=== PATIENT | male | born 1995 | race Caucasian/White ===

== ENCOUNTER 2024-10-26 02:20 | Emergency (ER) | payer MEDICAID, SELFPAY ==
[2024-10-26] VITALS (11 sets, daily range): BP systolic 118–172; BP diastolic 84–123; PULSE 70–87; RESP 15–27; TEMP 36.8–37; O2SAT 96–100; BMI 33.5
--- NOTE | 2024-10-26 02:36 | XR_ITS ---
Examination: Abdomen sonogram, Limited Date and time of exam: October 26, 2024 0351 hours INDICATIONS: Onset right upper abdominal pain beginning 5 hours ago Technique: Real-time hussein scale transabdominal sonographic images of the upper abdomen obtained. Findings: Normal gallbladder Normal common bile duct 0.5 cm Liver 16.8 cm no focal liver lesions Normal hepatopedal portal venous flow Patent IVC IMPRESSION: Normal gallbladder Mild hepatomegaly
--- NOTE | 2024-10-26 02:43 | EDNOTE_ITS ---
ED Abdominal Pain RME/HPI General Chief Complaint: Abdominal Pain Stated complaint: RIGHT UPPER ABD PAIN Time seen by provider: 10/26/24 02:36 Arrival date/time: 10/26/24 02:20 29M with history of anxiety and marijuana presents to ED with 1 day of RUQ/epigastric pain and N/V. Patient denies URI symptoms, dysuria and diarrhea. Limitations: no limitations Related Data Home Medications ?Medication ?Instructions ?Recorded ?Confirmed Citalopram Hydrobromide * (CELEXA 20 mg PO HS #0 tabs //05/15/18 *) aripiprazole 10 mg tablet (Abilify) 10 mg PO HS 05/15/18 Previous Rx's ?Medication ?Instructions ?Recorded acetaminophen 300 mg-codeine 15 mg 1 tab PO Q6H PRN pa in #15 tabs 02/22/21 tablet ibuprofen 800 mg tablet (IBU) 800 mg PO TID PRN pain # 30 tabs 02/22/21 amoxicillin 875 mg-potassium 1 tab PO BID 7 days #14 t abs 10/26/24 clavulanate 125 mg tablet pantoprazole 40 mg tablet,delayed 40 mg PO QDAY #30 ta bs 10/26/24 release Allergies Allergy/AdvReac Type Severity Reaction Status Date / Time No Known Allergies Allergy Verified 10/26/24 02:22 Review of Systems Review of Systems Systems Reviewed: All systems reviewed, normal except as documented Constitutional Constitutional: Reports system reviewed and no additional complaints, except as documented, Denies fever(s) and Denies headache(s) ENT Ears, Nose, Mouth, and Throat: Denies disequilibrium and Denies headache(s) Cardiovascular Cardiovascular: Reports system reviewed and no additional complaints, except as documented, Denies chest pain and Denies dyspnea Respiratory Respiratory: Reports system reviewed and no additional complaints, except as documented, Denies cough and Denies dyspnea Gastrointestinal Gastrointestinal: Reports system reviewed and no additional complaints, except as documented, Reports as per HPI, Reports abdominal pain, Reports nausea and Reports vomiting Neurologic Neurologic: Reports system reviewed and no additional complaints, except as documented, Denies confusion, Denies disequilibrium and Denies headache(s) Psychiatric Psychiatric: Denies confusion Past Medical History Past Medical History CARDIAC: Negative Congestive Heart Failure RESPIRATORY: Negative Chronic Obstructive Pulmonary Disease (COPD) GENITOURINARY: Negative Renal Disease ENDOCRINE: Negative Diabetes Mellitus Type 1 or Diabetes Mellitus Type 2 PSYCHO/SOCIAL: Positive Depression and Anxiety Social History SMOKING STATUS: Current some day smoker SUBSTANCE USE: marijuana ED Exam General Limitations: Present no limitations General appearance: Present alert, in no apparent distress and anxious (mild) Head Head exam: Present atraumatic Eye Eye exam: Present normal appearance, PERRL and EOMI ENT ENT exam: Present normal exam, normal oropharynx and mucous membranes moist Neck Neck exam: Present normal inspection, full ROM and trachea midline Chest Chest inspection: Present normal inspection and symmetric chest wall rise Respiratory Respiratory exam: Present normal lung sounds bilaterally Cardiovascular Cardiovascular exam: Present regular rate, normal rhythm and normal heart sounds Abdominal Exam Abdominal exam: Present soft and normal bowel sounds Abdominal tenderness: Present RUQ and epigastrium Extremities Exam Extremities exam: Present normal inspection and full ROM Back Exam Back exam: Present normal inspection and full ROM Neurological Exam Neurological exam: Present alert, oriented X3 and CN II-XII intact Psychiatric Psychiatric exam: Present normal affect and normal mood Skin Skin exam: Present warm, dry, intact and normal color Course Quality Measures none Orders Category Date Time Status CT Screening NOW Care 10/26/24 04:08 Completed EKG (ED ONLY) *Do not use* NOW Care 10/26/24 04:09 Completed Insert IV NOW Care 10/26/24 04:[address] abdomen pelvis w con Stat Exams 10/26/24 04:08 Completed EKG (ED Only) Stat Exams 10/26/24 04:08 Draft US gall bladder Stat Exams 10/26/24 02:36 Completed XR chest 1V portable Stat Exams 10/26/24 04:08 Completed CBC Stat Lab 10/26/24 02:45 Completed CBC Stat Lab 10/26/24 08:24 Completed CMP [Comprehensive Metabolic Panel] Stat Lab 10/26/24 02:45 Completed Lipase Stat Lab 10/26/24 02:45 Completed UA [Urinalysis] Stat Lab 10/26/24 08:41 Ordered Urinalysis, C/S if Indicated Stat Lab 10/26/24 08:41 Completed HYDROcodone*/APAP 5/325 [[place] 5/325] Med 10/26/24 02:36 Discontinued 1 tab PO X1 ONE Lidocaine 2% Viscous [Xylocaine 2% Viscous] Med 10/26/24 07:44 Discontinued 15 ml PO X1 ONE Morphine Inj Med 10/26/24 04:13 Discontinued 5 mg IVP X1 ONE Ondansetron Inj [Zofran Inj] Med 10/26/24 04:13 Discontinued 4 mg IV X1 ONE Sodium Chloride 0.9% 1000 ml [Ns] 1,000 ml Med 10/26/24 06:31 Discontinued IV 999 mls/hr mg Hyd/Al Hyd/Ambar Susp [Maalox Susp] Med 10/26/24 07:44 Discontinued 30 ml PO X1 ONE Vital Signs Vital signs: Vital Signs Temperature 98.3 F 10/26/24 02:28 Pulse Rate 83 10/26/24 02:28 Respiratory Rate 20 10/26/24 02:28 Blood Pressure 171/108 H 10/26/24 02:28 Pulse Oximetry (%) 99 10/26/24 02:28 Oxygen Delivery Method Room Air 10/26/24 02:28 O2 at 99% on RA and WNLs Abdominal Pain MDM MDM Narrative MDM Narrative:: 29M with history of anxiety and marijuana presents to ED with 1 day of RUQ/epigastric pain and N/V. Patient denies URI symptoms, dysuria and diarrhea. Physical exam reveals RUQ/epigastric tenderness (RUQ>epi). Patient is afebrile, calm, but mildly anxious. US unremarkable. CMP unremarkable. Lipase normal. Moderate leukocytosis. EKG is NSR. Wet CXR read unremarkable pending official report. Care signed out to colleague. CT showed PUD involving duodenum. Patient discharged with PPI and ABX. Patient data External records reviewed:: [facility] previous records Clinical information provided by:: patient Social determinants that could affect healthcare access:: substance use Patient has the following chronic illnesses:: drug/psych How is presenting disease/condition affected by chronic disease/condition?: exacerbated by Evaluation data The following diagnostics were reviewed and interpreted by me:: lab results and radiology exam(s) Lab and/or radiology exams considered but not ordered:: ordered Interpretation Summary: above Medications / Prescriptions Medications or Prescriptions considered but not ordered:: ordered Medication administrations:: Medication Administration History Discontinued Medications Hydrocodone Bitart/Acetaminophen (Hydrocodone/Apap 5/325 Tablet) 1 tab PO X1 ONE Stop: 10/26/24 02:37 Last Admin: 10/26/24 02:52 Dose: 1 tab Documented By: CVL Al Hydrox/Mg Hydrox/Simethicone (Mg Hyd/Al Hyd/Ambar (Maalox Reg) Susp 30 Ml Udc) 30 ml PO X1 ONE Stop: 10/26/24 07:45 Last Admin: 10/26/24 08:36 Dose: 30 ml Documented By: BETINA Sodium Chloride (Ns) 1,000 mls @ 999 mls/hr IV .Q1H1M ONE Stop: 10/26/24 07:31 Last Infusion: 10/26/24 07:49 Dose: Infused Documented By: Admin: 10/26/24 06:48 Dose: 999 mls/hr Documented By: MADDI Lidocaine HCl (Lidocaine Viscous 2% 15 Ml Udc) 15 ml PO X1 ONE Stop: 10/26/24 07:45 Last Admin: 10/26/24 08:36 Dose: 15 ml Documented By: BETINA Morphine Sulfate (Morphine Sulf Inj 10 Mg/Ml Vial) 5 mg IVP X1 ONE Stop: 10/26/24 04:14 Last Admin: 10/26/24 04:35 Dose: 5 mg Documented By: MADDI Ondansetron HCl (Ondansetron Inj 2 Mg/Ml Inj 2 Ml) 4 mg IV X1 ONE; Protocol Stop: 10/26/24 04:14 Last Admin: 10/26/24 04:35 Dose: 4 mg Documented By: MADDI above Consultations Consultation(s) initiated? (list below): No Diagnosis Differential diagnosis abdominal pain: abdominal pain, acute appendicitis, calculus of kidney, constipation, diverticulitis, gastroenteritis, pancreatitis, small bowel obstruction and other (biliary disease, kidney stone, PUD) Most likely diagnosis given after review of the tests above:: PUD and ab pain Admission Indicated Admission indicated?: not indicated Admission Request Was there a request for admission?: No Disposition Plan Disposition Plan: Discharge Discharge Attestation Discharge Attestation: The patient and all family members were given an opportunity to ask questions and understood the discharge instructions. Discharge instructions specifically effects, indications for sooner follow up or return to the emergency department, and the expected course of current diagnosis. Patient condition: Stable Discharge Plan Plan Patient Disposition: HOME (Self Care) Prescriptions/Referrals Prescriptions/Med Rec: New pantoprazole 40 mg tablet,delayed release (DR/EC) 40 mg PO QDAY Qty: 30 0RF amoxicillin-pot clavulanate 875-125 mg tablet 1 tab PO BID 7 Days Qty: 14 0RF No Action Citalopram Hydrobromide * (CELEXA *) 20 MG tablet 20 mg PO HS Qty: 0 ibuprofen [IBU] 800 mg tablet 800 mg PO TID PRN (Reason: pain) Qty: 30 0RF acetaminophen-codeine 300-15 mg tablet 1 tab PO Q6H PRN (Reason: pain) Qty: 15 0RF aripiprazole [Abilify] 10 mg Tablet 10 mg PO HS Patient Comments: patient does not know dose Referrals: Nimo Cortez [employer] [Primary Care Provider] - In 1 week Problem List Clinical Impression: Abdominal pain, Peptic ulcer Patient/Caregiver Discharge Instructions Discharge Activity: activity as tolerated Education Materials: Abdominal Pain, ED PEPTIC ULCER vs GASTRITIS Additional Instructions: Medication sent to pharmacy take as directed. only prescribed a short course to see if it helps symptoms. advised to avoid eating fatty foods, spicy foods, mint, chocolate or large meals, lying down after eating, wearing tight garments or engaging in activities which would increase the pressure in the abdomen. Keeping the head end of the bed elevated may also help alleviate symptoms. Weight reduction may also help. Please make sure you have an H. pylori testing outpatient. Follow-up with your clinic on Tuesday for follow-up care. Return to the emergency department this any worsening symptoms change in condition. Print Language: [place] Stand Alone Forms: [employer] Award Info., Patient Portal Info Letter MARLON/GAYLE Supervising Physician MARLON/GAYLE Supervising Physician: Dr Eason
[2024-10-26] MEDS: HYDROcodone/APAP 5/325 TABLET 1 TAB PO (02:52)
[2024-10-26 02:55] LABS: Basophils # (Auto) 0.1 Thou/mm3 (0.0-0.2); Basophils % (Auto) 0 % (0-2.5); Eosinophils # (Auto) 0.3 Thou/mm3 (0.0-0.5); Eosinophils % (Auto) 2 % (0-10); Hematocrit 45.8 % (41.0-53.0); Hemoglobin 15.8 g/dL (13.5-16.0); Immature Granulocytes % (Auto) 0 % (0-0); Immature Granulocytes Auto 0.07 Thou/mm3 (0.00-0.00); Lymphocytes # (Auto) 3.1 Thou/mm3 (1.0-4.8); Lymphocytes % (Auto) 18 % (10-50); Mean Corpuscular HGB Conc 34.5 g/dl (31.0-37.0); Mean Corpuscular Hemoglobin 28.9 pg (25.0-35.0); Mean Corpuscular Volume 84 fL (80-100); Monocytes # (Auto) 0.8 Thou/mm3 (0.0-0.8); Monocytes % (Auto) 5 % (0-12); Neutrophils # (Auto) 13.2 Thou/mm3 (1.8-7.7); Neutrophils % (Auto) 75 % (37-80); Nucleated Red Blood Cell % 0 /100 WBC (0); Platelet Count 318 Thou/mm3 (140-440); RDW Standard Deviation 38.4 fL (35.1-43.9); Red Blood Count 5.46 Miln/mm3 (4.50-5.90); White Blood Count 17.5 Thou/mm3 (3.8-10.6)
[2024-10-26 03:19] LABS: Alanine Aminotransferase 40 U/L (10-49); Albumin, Serum 4.9 gm/dL (3.5-5.0); Albumin/Globulin Ratio 1.5 (1.2-2.2); Alkaline Phosphatase 75 U/L (46-116); Anion Gap 11 (7-16); Aspartate Amino Transferase 25 U/L (0-34); BUN/Creatinine Ratio 11 Ratio (12-20); Bilirubin,Total 0.6 mg/dL (0.3-1.2); Blood Urea Nitrogen 11 mg/dL (9-23); Calcium 10.1 mg/dL (8.3-10.6); Calcium (Corrected) 10.1 mg/dL (8.5-10.1); Carbon Dioxide 26.1 mMol/L (20.0-31.0); Chloride 102 mMol/L (98-107); Estimated Creatinine Clearance 139.2 mL/min (>60); Globulin 3.2 gm/dL (2.3-3.5); Glucose 136 mg/dL (74-106); Lipase 33 U/L (12-53); Osmolality,Calculated 278 (275-295); Potassium 3.4 mMol/L (3.4-5.1); Sodium 139 mMol/L (136-145); Total Protein 8.1 gm/dL (5.7-8.2); eGFR > 60 See Note
--- NOTE | 2024-10-26 04:08 | XR_ITS ---
Examination: CT abdomen with intravenous contrast CT pelvis with intravenous contrast 2-D coronal reconstructions 2-D sagittal reconstructions Date and time of exam:October 26, 2024 0540 hrs. Indications: Right upper abdominal pain nausea and epigastric pain beginning 6 hours ago. CTDI: vol (mGy) 13 DLP: (mGycm) 856 Technique: Multiple axial sections of the abdomen and pelvis have been obtained. 64 slice high-resolution scanner used. 3 mm axial sections have been obtained, post intravenous injection 60 cc [id number] 2-D sagittal, coronal reconstructions obtained. Low dose protocols were performed. One or more of the following dose reduction techniques were used; automated exposure control, adjustment of the mA and/or KV according to patient size, use of iterative reconstruction technique. Findings: No focal liver lesions or biliary tract dilatation - for gallstones Spleen is not enlarged Edema involving the duodenum axial image 81 No pancreatic or adrenal mass No renal or ureteral calculi, no hydronephrosis Aorta normal size 10 mm fat-containing umbilical hernia Normal appendix No bowel obstruction The entire colon shows mild wall thickening and hyperemia No prostatomegaly No bladder mass Impression: Suspicious for active peptic disease involving the duodenal bulb Mild nonspecific diffuse colitis pattern Normal appendix
--- NOTE | 2024-10-26 04:08 | EKG_ITS ---
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
--- NOTE | 2024-10-26 04:08 | XR_ITS ---
Examination: AP chest single view Technique one AP portable upright chest single view Exam date and time: October 26, 2024 0415 hrs. Indications: Right upper abdominal pain today. Findings: Normal heart size. The lungs are clear. The osseous structures are intact. Impression: No active disease
[2024-10-26] MEDS: MORPHINE SULF INJ 10 MG/ML VIAL 5 MG IVP (04:35)
[2024-10-26] MEDS: ONDANSETRON INJ 2 MG/ML INJ 2 ML 4 MG IV (04:35)
--- NOTE | 2024-10-26 06:12 | PRELIM_ITS ---
Gallbladder ultrasound. October 26, 2024 at 0352 hours Clinical history: Right upper quadrant /epigastric pain. Technique: Grayscale and color flow images of the right upper quadrant are provided. Hepatic and portal veins were also imaged with color flow images. Comparison: None Findings: The liver measures 16.8 cm in length and is normal in echogenicity. No evidence of mass or cyst. No evidence of ascites. No intrahepatic biliary ductal dilatation. The main portal vein is patent and demonstrates hepatopetal flow. No gallbladder calculus, wall thickening or pericholecystic fluid is demonstrated. The common bile duct is normal in caliber at 6 mm. The pancreas is obscured by bowel gas and is not evaluated on this examination. The inferior vena cava to the extent visualized is within normal limits. Impression: No sonographic evidence of cholelithiasis, acute cholecystitis or biliary obstruction. Report Electronically Signed By: Jaime Simpson 10/26/2024 6:11:43 AM [EST]
[2024-10-26] MEDS: SODIUM CHLORIDE 0.9% 1000 ML 1,000 ML 999 ML IV (06:48)
--- NOTE | 2024-10-26 07:24 | PC.NURSE ---
Pt resting w/eyes closed upon assumption of care. pt woke up for assessment, denies any pain currently states medication has helped a lot. fluids continue to infuse at this time, pt reminded a urine is needed, reports he is unable to provide one at this time, but will try after fluids are done infusing. Visitor at bedside attentive to pt. call evans remains in reach, will continue to follow POC.
--- NOTE | 2024-10-26 07:41 | PD.EDADDENDU ---
Emergency Room Addendum Addendum Narrative: This case was signed out by other colleague due to his shift ending. Patient presented today for complaints of right upper quadrant abdominal pain with mild nausea no fever. During his ED course he had labs gallbladder ultrasound and CT abdomen. He did receive pain medication IV fluids antiemetics. Upon my assessment patient reports he feels improved. Reviewed labs mild leukocytosis. CMP reassuring. Gallbladder ultrasound negative for cholelithiasis. CT abdomen negative for acute appendicitis, mild peptic ulcer disease depicted. I did go ahead and order a urinalysis- Will repeat CBC I will give him a GI cocktail start him on pantoprazole most likely please Dc home. Patient does report he does not have routine checkups with his PCP advised to schedule an appointment with PCP for follow-up. Most likely H. pylori testing outpatient. Advised to return to the emergency department with any worsening symptoms change in condition. imaging reviewed: Examination: AP chest single view Technique one AP portable upright chest single view Exam date and time: October 26, 2024 0415 hrs. Indications: Right upper abdominal pain today. Findings: Normal heart size. The lungs are clear. The osseous structures are intact. Impression: No active disease Examination: CT abdomen with intravenous contrast CT pelvis with intravenous contrast 2-D coronal reconstructions 2-D sagittal reconstructions Date and time of exam:October 26, 2024 0540 hrs. Indications: Right upper abdominal pain nausea and epigastric pain beginning 6 hours ago. CTDI: vol (mGy) 13 DLP: (mGycm) 856 Technique: Multiple axial sections of the abdomen and pelvis have been obtained. 64 slice high-resolution scanner used. 3 mm axial sections have been obtained, post intravenous injection 60 cc [id number] 2-D sagittal, coronal reconstructions obtained. Low dose protocols were performed. One or more of the following dose reduction techniques were used; automated exposure control, adjustment of the mA and/or KV according to patient size, use of iterative reconstruction technique. Findings: No focal liver lesions or biliary tract dilatation - for gallstones Spleen is not enlarged Edema involving the duodenum axial image 81 No pancreatic or adrenal mass No renal or ureteral calculi, no hydronephrosis Aorta normal size 10 mm fat-containing umbilical hernia Normal appendix No bowel obstruction The entire colon shows mild wall thickening and hyperemia No prostatomegaly No bladder mass Impression: Suspicious for active peptic disease involving the duodenal bulb Mild nonspecific diffuse colitis pattern Normal appendix
[2024-10-26 08:33] LABS: Basophils % (Auto) 0 % (0-2.5); Eosinophils % (Auto) 0 % (0-10); Hematocrit 44.6 % (41.0-53.0); Immature Granulocytes % (Auto) 0 % (0-0); Immature Granulocytes Auto 0.04 Thou/mm3 (0.00-0.00); Lymphocytes # (Auto) 1.7 Thou/mm3 (1.0-4.8); Lymphocytes % (Auto) 13 % (10-50); Mean Corpuscular HGB Conc 33.6 g/dl (31.0-37.0); Mean Corpuscular Hemoglobin 28.7 pg (25.0-35.0); Mean Corpuscular Volume 85 fL (80-100); Monocytes # (Auto) 0.7 Thou/mm3 (0.0-0.8); Monocytes % (Auto) 6 % (0-12); Neutrophils # (Auto) 10.2 Thou/mm3 (1.8-7.7); Neutrophils % (Auto) 81 % (37-80); Nucleated Red Blood Cell % 0 /100 WBC (0); Platelet Count 273 Thou/mm3 (140-440); RDW Standard Deviation 39.4 fL (35.1-43.9); Red Blood Count 5.22 Miln/mm3 (4.50-5.90); White Blood Count 12.7 Thou/mm3 (3.8-10.6)
[2024-10-26] MEDS: MG HYD/AL HYD/SIME (Maalox Reg) SUSP 30 ML UDC PO (08:36)
[2024-10-26] MEDS: LIDOCAINE VISCOUS 2% 15 ML UDC PO (08:36)
[2024-10-26 08:55] LABS: Collection Type, Urine Clean Catch; WBC,Urine 0 /hpf (0-5)
[2024-10-26 09:08] LABS: Amorphous Crystals,Urine Present (Absent); Bilirubin,Urine Negative (Negative); Blood,Urine Negative (Negative); Clarity,Urine Clear (Clear/Hazy); Color,Urine Lt-Yellow (Lt Yel-Yel); Culture Indicated,Urine Not Indicated; Glucose, Urine Negative (Negative); Ketones,Urine 2+ (Negative); Leukocyte Esterase,Urine Negative (Negative); Nitrite,Urine Negative (Negative); Protein,Urine Negative (Neg - Trace); RBC,Urine 8 /hpf (0-3); Squamous Epithelial Cell,Urine < 1 /hpf (0-5); Urobilinogen,Urine Negative mg/dL (0.0-1.0)
[2024-10-26 09:25] LABS: Specific Gravity,Urine 1.015 (1.001-1.035)
== END 2024-10-26 11:08 | disposition home or self-care (01) ==
PROVIDERS: Nurse Practitioner Primary Care; Physician Assistant; Emergency Provider Emergency Medicine; PCP Nurse Practitioner Family
DX: K27.9 Peptic ulcer, site unspecified, unspecified as acute or chronic, without hemorrhage or perforation (principal)
CPT/HCPCS: 36415; 71045; 74177; 76705; 80053; 81001; 83690; 85025; 87400; 93005; 96361; 96374; 99285; A4649; J2270; J2405; J3490; J7030; Q9967; A9270

== ENCOUNTER 2024-10-28 12:57 | Emergency (ER) | payer MEDICAID, SELFPAY ==
--- NOTE | 2024-10-28 13:02 | EKG_ITS ---
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
--- NOTE | 2024-10-28 13:02 | XR_ITS ---
Examination: Abdomen sonogram, Limited Date and time of exam: October 28, 2024 1345 hrs. Indications: Onset right upper abdominal pain beginning 6 months ago Technique: Real-time hussein scale transabdominal sonographic images of the upper abdomen obtained. Findings: 18 mm gallstone Gallbladder wall is abnormally thickened 0.6 cm Common bile duct 0.5 cm no stones Pancreatic head 2.4 cm Liver 16 cm fatty infiltration no focal liver lesions Normal hepatopedal portal venous flow Patent IVC Impression: Calculus cholecystitis, consider HIDA scan follow-up to confirm cystic duct obstruction
--- NOTE | 2024-10-28 13:03 | EDNOTE_ITS ---
ED General RME/HPI General Chief complaint: Abdominal Pain Stated complaint: ABD PAIN Time Seen by Provider: 10/28/24 13:02 Arrival date/time: 10/28/24 12:57 CC: Right upper quadrant abdominal pain HPI patient presents the ER via EMS from his clinic, where the patient was pale diaphoretic. Patient was given 100 mcg of fentanyl for the pain and route. EMS reports tachycardia with a stable blood pressure. Patient is awake alert oriented states he was here 2 days ago on October 26 for same complaint right upper quadrant pain had a workup including ultrasound and scan which were negative . Patient denies diarrhea and is eating soft bland foods. No other complaints patient is pale and diaphoretic upon assessment. Localized pain is 8 to a 9 on a 10 scale. Related Data Home Medications ?Medication ?Instructions ?Recorded ?Confirmed Citalopram Hydrobromide * (CELEXA 20 mg PO HS #0 tabs 11/07/15 05/15/18 *) aripiprazole 10 mg tablet (Abilify) 10 mg PO HS 05/15/18 Previous Rx's ?Medication ?Instructions ?Recorded acetaminophen 300 mg-codeine 15 mg 1 tab PO Q6H PRN pa in #15 tabs 02/22/21 tablet ibuprofen 800 mg tablet (IBU) 800 mg PO TID PRN pain # 30 tabs 02/22/21 amoxicillin 875 mg-potassium 1 tab PO BID 7 days #14 t abs 10/26/24 clavulanate 125 mg tablet pantoprazole 40 mg tablet,delayed 40 mg PO QDAY #30 ta bs 10/26/24 release meloxicam 7.5 mg tablet 7.5 mg PO QDAY #10 tabs 10/07 11/27 ondansetron 4 mg disintegrating 4 mg PO Q8H #10 tabs 0 10/28/24 tablet Allergies Allergy/AdvReac Type Severity Reaction Status Date / Time No Known Allergies Allergy Verified 10/26/24 02:22 Review of Systems Review of Systems Narrative Review of Systems: GEN: No fever, no chills, no weight loss EYES: No discharge, no visual changes, no pain HEENT: No ear pain, no congestion, no sore throat PULM: No shortness of breath, no cough, no congestion CV: No chest pain, no dyspnea on exertion, no palpitations GI: No nausea, no vomiting, no diarrhea, + pain, no constipation : No frequency, no urgency, no dysuria MUSC/SKEL: No joint pain, no back pain SKIN: No rash PSYCH: No hallucinations, no depression HEME/LYMPH: No easy bleeding or bruising tendencies NEURO: No weakness, no headache Past Medical History Past Medical History CARDIAC: Negative Cardiac Disorders or Congestive Heart Failure RESPIRATORY: Negative Chronic Obstructive Pulmonary Disease (COPD) or Asthma GENITOURINARY: Negative Renal Disease ENDOCRINE: Negative Diabetes Mellitus Type 1 or Diabetes Mellitus Type 2 HEMATOLOGIC: Negative Sickle Cell Disease PSYCHO/SOCIAL: Positive Depression and Anxiety Social History SMOKING STATUS: Current some day smoker SUBSTANCE USE: marijuana ED Exam Narrative Physical exam: [General: Obese, pale, diaphoretic, in moderate discomfort but not in any acute distress Head normocephalic HEENT: Within acceptable limits Neck is supple nontender Chest equal chest rise nontender to palpation Respiratory: Clear to auscultation no wheezes crackles or rubs CV: Rate rhythm is regular no murmurs rubs or clicks Abdomen right upper quadrant tenderness with palpation reflexive guarding no rebound tenderness no epigastric left upper quadrant or lower quadrant abdominal pain. Back: No CVA tenderness no spinous process tenderness from cervical spine thoracic and lumbar spine Skin: Intact no petechiae rash induration ulceration or crepitus Extremities: Moving all extremity against resistance cap refill less than 2 seconds neurosensory intact Neuro: Awake alert oriented x3 Glascow coma 15 no focal deficits] Course Quality Measures none Orders Category Date Time Status EKG (ED ONLY) *Do not use* NOW Care 10/28/24 13:02 Completed EKG (ED Only) Stat Exams 10/28/24 13:02 Draft US gall bladder Stat Exams 10/28/24 13:02 Completed B-Type Natriuretic Peptide Stat Lab 10/28/24 13:43 Completed CBC Stat Lab 10/28/24 13:43 Completed Comprehensive Metabolic Panel Stat Lab 10/28/24 13:43 Completed Drug Screen,Urine Stat Lab 10/28/24 13:02 Ordered Lipase Stat Lab 10/28/24 13:43 Completed Magnesium Stat Lab 10/28/24 13:43 Completed Partial Thromboplastin Time Stat Lab 10/28/24 13:43 Completed Prothrombin Time with INR Stat Lab 10/28/24 13:43 Completed Urinalysis Stat Lab 10/28/24 13:02 Ordered Vital Signs Vital signs: Vital Signs Temperature 98.0 F 10/28/24 13:45 Pulse Rate 88 10/28/24 13:45 Respiratory Rate 14 10/28/24 13:45 Blood Pressure 150/100 H 10/28/24 13:45 Pulse Oximetry (%) 97 10/28/24 13:45 Oxygen Delivery Method Room Air 10/28/24 13:45 MDM Patient data External records reviewed:: [facility] previous records and EMS form Clinical information provided by:: patient and EMS Social determinants that could affect healthcare access:: none Patient has the following chronic illnesses:: Obesity How is presenting disease/condition affected by chronic disease/condition?: u neffected by Evaluation data The following diagnostics were reviewed and interpreted by me:: lab results, radiology exam(s) and EKG tracing(s) Lab and/or radiology exams considered but not ordered:: EKG performed at 1520 shows a ventricular rate of 90 [place] interval 146 QRS of 91 QTc of 391 the sinus rhythm left axis deviation CBC shows no acute leukocytosis anemia thrombocytopenia CMP shows no acute electrolyte imbalances renal impairment transaminitis or T. bili elevation Lipase is normal Ultrasound of the gallbladder shows cholelithiasis without cholecystitis and a mild thickened gallbladder wall. Ultrasound is interpreted by radiologist recommends a HIDA scan. Interpretation Summary: At this time I feel the patient is comfortable up to be discharged home to follow-up in the morning for HIDA scan. Patient is nontoxic-appearing with no active nausea or vomiting resting comfortably with stable vital signs. Medications Medications considered but not ordered:: None none Medication administrations:: None Consultations Consultation(s) initiated? (list below): No Diagnosis Differential Diagnosis ED Complaint MDM: Cholecystitis, cholelithiasis, choledocholithiasis Most likely diagnosis given after review of the tests above:: Cholelithiasis Admission Indicated Admission indicated?: not indicated Explain why admission is indicated or not indicated:: Stable for return tomorrow Admission Request Was there a request for admission?: No Disposition Plan Disposition Plan: Discharge Discharge Attestation Discharge Attestation: The patient and all family members were given an opportunity to ask questions and understood the discharge instructions. Discharge instructions specifically effects, indications for sooner follow up or return to the emergency department, and the expected course of current diagnosis. Patient condition: Stable Medical Decision Making Differential Diagnosis Differential Diagnosis: Cholecystitis, cholelithiasis, choledocholithiasis Lab Data 02/23/25 13:43 10/28/24 13:43 Labs: Lab Results 10/28/24 Range/Units 13:43 WBC 11.7 H (3.8-10.6) Thou/mm3 RBC 5.66 (4.50-5.90) Miln/mm3 Hgb 16.4 H (13.5-16.0) g/dL Hct 47.1 (41.0-53.0) % MCV 83 (80-100) fL MCH 29.0 (25.0-35.0) pg MCHC 34.8 (31.0-37.0) g/dl RDW Std Deviation 38.2 (35.1-43.9) fL Plt Count 281 (140-440) Thou/mm3 Neut % (Auto) 66 (37-80) % Lymph % (Auto) 23 (10-50) % Grady % (Auto) 10 (0-12) % Eos % (Auto) 1 (0-10) % Baso % (Auto) 1 (0-2.5) % Neut # (Auto) 7.6 (1.8-7.7) Thou/mm3 Lymph # (Auto) 2.7 (1.0-4.8) Thou/mm3 Grady # (Auto) 1.2 H (0.0-0.8) Thou/mm3 Eos # (Auto) 0.1 (0.0-0.5) Thou/mm3 Baso # (Auto) 0.1 (0.0-0.2) Thou/mm3 Immature Gran # (Auto) 0.04 H (0.00-0.00) Thou/mm3 Absolute Nucleated RBC 0.00 (0.00-0.00) Thou/mm3 Immature Gran % 0 (0-0) % Nucleated RBC % 0 (0) /100 WBC PT 12.6 H (9.0-12.2) Seconds INR 1.2 (0.9-1.3) APTT 28.5 (22.0-36.0) Seconds Sodium 136 (136-145) mMol/L Potassium 3.8 (3.4-5.1) mMol/L Chloride 102 (98-107) mMol/L Carbon Dioxide 20.7 (20.0-31.0) mMol/L Anion Gap 13 (7-16) BUN 11 (9-23) mg/dL Creatinine 0.8 (0.6-1.3) mg/dL Estim Creat Clear Calc 165.1 (>60) mL/min eGFR > 60 (60 - ) See Note BUN/Creatinine Ratio 14 (12-20) Ratio Glucose 89 (74-106) mg/dL Calculated Osmolality 270 L (275-295) Calcium 10.0 (8.3-10.6) mg/dL Corrected Calcium 10.0 (8.5-10.1) mg/dL Magnesium 2.1 (1.6-2.6) mg/dL Total Bilirubin 0.9 (0.3-1.2) mg/dL AST 19 (0-34) U/L ALT 24 (10-49) U/L Alkaline Phosphatase 65 (46-116) U/L B-Natriuretic Peptide < 20 (0-100) pg/mL Total Protein 8.3 H (5.7-8.2) gm/dL Albumin 5.0 (3.5-5.0) gm/dL Globulin 3.3 (2.3-3.5) gm/dL Albumin/Globulin Ratio 1.5 (1.2-2.2) Lipase 30 (12-53) U/L Discharge Plan Plan Patient Disposition: HOME (Self Care) Patient condition on transfer: Stable Prescriptions/Referrals Prescriptions/Med Rec: New ondansetron 4 mg tablet,disintegrating 4 mg PO Q8H Qty: 10 0RF meloxicam 7.5 mg tablet 7.5 mg PO QDAY Qty: 10 0RF No Action Citalopram Hydrobromide * (CELEXA *) 20 MG tablet 20 mg PO HS Qty: 0 ibuprofen [IBU] 800 mg tablet 800 mg PO TID PRN (Reason: pain) Qty: 30 0RF acetaminophen-codeine 300-15 mg tablet 1 tab PO Q6H PRN (Reason: pain) Qty: 15 0RF aripiprazole [Abilify] 10 mg Tablet 10 mg PO HS Patient Comments: patient does not know dose pantoprazole 40 mg tablet,delayed release (DR/EC) 40 mg PO QDAY Qty: 30 0RF amoxicillin-pot clavulanate 875-125 mg tablet 1 tab PO BID 7 Days Qty: 14 0RF Referrals: Carlos Patterson MD [Physician] - In 1 week No Primary/Family,Physician [Primary Care Provider] - In 1 week Problem List Clinical Impression: Abdominal pain, right upper quadrant, Cholelithiasis Patient/Caregiver Discharge Instructions Education Materials: Abdominal Pain, Treating Gallstones Additional Instructions: Return in the morning at 830 for HIDA scan please if there is worsening of symptoms in spite of medications given return sooner. Print Language: Montserratian Stand Alone Forms: [employer] Award Info., Patient Portal Info Letter PA/BOX STORAGE WORKER Supervising Physician PA/BOX STORAGE WORKER Supervising Physician: Tu Kessler ENP
[2024-10-28 13:45] VITALS: BP 150/100; PULSE 88; RESP 14; TEMP 36.7; O2SAT 97
[2024-10-28 13:50] VITALS: PULSE 94
[2024-10-28 13:55] VITALS: BMI 34.0
[2024-10-28 14:03] LABS: Basophils # (Auto) 0.1 Thou/mm3 (0.0-0.2); Basophils % (Auto) 1 % (0-2.5); Eosinophils # (Auto) 0.1 Thou/mm3 (0.0-0.5); Eosinophils % (Auto) 1 % (0-10); Hematocrit 47.1 % (41.0-53.0); Hemoglobin 16.4 g/dL (13.5-16.0); Immature Granulocytes % (Auto) 0 % (0-0); Immature Granulocytes Auto 0.04 Thou/mm3 (0.00-0.00); Lymphocytes # (Auto) 2.7 Thou/mm3 (1.0-4.8); Lymphocytes % (Auto) 23 % (10-50); Mean Corpuscular HGB Conc 34.8 g/dl (31.0-37.0); Mean Corpuscular Volume 83 fL (80-100); Monocytes # (Auto) 1.2 Thou/mm3 (0.0-0.8); Monocytes % (Auto) 10 % (0-12); Neutrophils # (Auto) 7.6 Thou/mm3 (1.8-7.7); Neutrophils % (Auto) 66 % (37-80); Nucleated Red Blood Cell % 0 /100 WBC (0); Platelet Count 281 Thou/mm3 (140-440); RDW Standard Deviation 38.2 fL (35.1-43.9); Red Blood Count 5.66 Miln/mm3 (4.50-5.90); White Blood Count 11.7 Thou/mm3 (3.8-10.6)
[2024-10-28 14:22] LABS: B-Type Natriuretic Peptide < 20 pg/mL (0-100)
[2024-10-28 14:23] LABS: Alanine Aminotransferase 24 U/L (10-49); Albumin/Globulin Ratio 1.5 (1.2-2.2); Alkaline Phosphatase 65 U/L (46-116); Anion Gap 13 (7-16); Aspartate Amino Transferase 19 U/L (0-34); BUN/Creatinine Ratio 14 Ratio (12-20); Bilirubin,Total 0.9 mg/dL (0.3-1.2); Blood Urea Nitrogen 11 mg/dL (9-23); Carbon Dioxide 20.7 mMol/L (20.0-31.0); Chloride 102 mMol/L (98-107); Creatinine (Component) 0.8 mg/dL (0.6-1.3); Estimated Creatinine Clearance 165.1 mL/min (>60); Globulin 3.3 gm/dL (2.3-3.5); Glucose 89 mg/dL (74-106); INR 1.2 (0.9-1.3); Lipase 30 U/L (12-53); Magnesium 2.1 mg/dL (1.6-2.6); Osmolality,Calculated 270 (275-295); Partial Thromboplastin Time 28.5 Seconds (22.0-36.0); Potassium 3.8 mMol/L (3.4-5.1); Prothrombin Time 12.6 Seconds (9.0-12.2); Sodium 136 mMol/L (136-145); Total Protein 8.3 gm/dL (5.7-8.2); eGFR > 60 See Note
[2024-10-28 16:02] VITALS: BP 135/88; PULSE 91; RESP 16; TEMP 37; O2SAT 97
== END 2024-10-28 16:26 | disposition home or self-care (01) ==
PROVIDERS: Registered Nurse General Practice; Emergency Provider Emergency Medicine
DX: K80.20 Calculus of gallbladder without cholecystitis without obstruction (principal); R94.31 Abnormal electrocardiogram [ECG] [EKG]
CPT/HCPCS: 36415; 76705; 80053; 80307; 81001; 83690; 83735; 83880; 85025; 85610; 85730; 93005; 99284

== ENCOUNTER 2024-10-29 08:54 | Day surgery (SDC) | payer MEDICAID, SELFPAY ==
[2024-10-29] VITALS (12 sets, daily range): BP systolic 132–178; BP diastolic 92–124; PULSE 78–110; RESP 14–22; TEMP 36.3–37.3; O2SAT 95–99; BMI 32.5
--- NOTE | 2024-10-29 10:06 | PD.EDABDPN ---
ED Abdominal Pain RME/HPI General Chief Complaint: Abdominal Pain Stated complaint: RETURNING FOR HIDA SCAN Time seen by provider: 10/29/24 09:30 Arrival date/time: 10/29/24 08:54 29-year-old male presents to the emergency department complains of right upper abdominal pain patient reports symptoms over the last couple of days patient reports previous episodes similar in the past. Patient was evaluated yesterday instructed to return today for HIDA scan Limitations: no limitations Related Data Home Medications ?Medication ?Instructions ?Recorded ?Confirmed Citalopram Hydrobromide * (CELEXA 20 mg PO HS #0 tabs 11/06/05/15/18 *) aripiprazole 10 mg tablet (Abilify) 10 mg PO HS 05/15/18 05/15/18 Previous Rx's ?Medication ?Instructions ?Recorded acetaminophen 300 mg-codeine 15 mg 1 tab PO Q6H PRN pain #15 tabs 02/22/21 tablet ibuprofen 800 mg tablet (IBU) 800 mg PO TID PRN pain #30 tabs 02/22/21 amoxicillin 875 mg-potassium 1 tab PO BID 7 days #14 tabs 10/26/24 clavulanate 125 mg tablet pantoprazole 40 mg tablet,delayed 40 mg PO QDAY #30 tabs 10/26/24 release meloxicam 7.5 mg tablet 7.5 mg PO QDAY #10 tabs 10/28/24 ondansetron 4 mg disintegrating 4 mg PO Q8H #10 tabs 10/28/24 tablet Allergies Allergy/AdvReac Type Severity Reaction Status Date / Time No Known Allergies Allergy Verified 10/26/24 02:22 Review of Systems Review of Systems Systems Reviewed: All systems reviewed, normal except as documented Constitutional Constitutional: Reports system reviewed and no additional complaints, except as documented, Denies fever(s) and Denies headache(s) Eyes Eyes: Reports system reviewed and no additional complaints, except as documented and Denies blurry vision ENT Ears, Nose, Mouth, and Throat: Reports system reviewed and no additional complaints, except as documented, Denies headache(s), Denies nasal congestion and Denies nasal discharge Cardiovascular Cardiovascular: Reports system reviewed and no additional complaints, except as documented, Denies chest pain and Denies dyspnea Respiratory Respiratory: Reports system reviewed and no additional complaints, except as documented, Denies chest congestion, Denies cough and Denies dyspnea Gastrointestinal Gastrointestinal: Reports system reviewed and no additional complaints, except as documented and Reports abdominal pain Integumentary/Breasts Skin/Breast: Reports system reviewed and no additional complaints, except as documented and Denies rash Neurologic Neurologic: Reports system reviewed and no additional complaints, except as documented, Reports as per HPI and Denies headache(s) Past Medical History Past Medical History CARDIAC: Negative Cardiac Disorders or Congestive Heart Failure RESPIRATORY: Negative Chronic Obstructive Pulmonary Disease (COPD) or Asthma GENITOURINARY: Negative Renal Disease ENDOCRINE: Negative Diabetes Mellitus Type 1 or Diabetes Mellitus Type 2 HEMATOLOGIC: Negative Sickle Cell Disease PSYCHO/SOCIAL: Positive Depression and Anxiety Social History SMOKING STATUS: Never smoker SUBSTANCE USE: marijuana ED Exam General Limitations: Present no limitations General appearance: Present alert and in no apparent distress Head Head exam: Present atraumatic Eye Eye exam: Present normal appearance, PERRL and EOMI ENT ENT exam: Present normal exam, normal oropharynx and mucous membranes moist Neck Neck exam: Present normal inspection, full ROM and trachea midline Chest Chest inspection: Present normal inspection and symmetric chest wall rise Respiratory Respiratory exam: Present normal lung sounds bilaterally Cardiovascular Cardiovascular exam: Present regular rate, normal rhythm and normal heart sounds Abdominal Exam Abdominal exam: Present soft, tenderness, guarding, normal bowel sounds and Rolle's sign; Absent distention, rebound, rigidity or tenderness at McBurney's Point Abdominal tenderness: Present RUQ; Absent RLQ Extremities Exam Extremities exam: Present normal inspection and full ROM Back Exam Back exam: Present normal inspection and full ROM Neurological Exam Neurological exam: Present alert, oriented X3 and CN II-XII intact Psychiatric Psychiatric exam: Present normal affect and normal mood Skin Skin exam: Present warm, dry, intact and normal color Course Quality Measures none Orders Category Date Time Status COVID-19 Screening Questionnaire NOW Care 10/29/24 10:08 Active Decision to Admit X1 Care 10/29/24 10:07 Completed Insert IV NOW Care 10/29/24 10:08 Active Consult to General Surgery Stat Cons 10/29/24 10:08 Ordered Morphine Inj Med 10/29/24 10:06 Discontinued 4 mg IVP X1 ONE Ondansetron Inj [Zofran Inj] Med 10/29/24 10:06 Discontinued 4 mg IV X1 ONE Sodium Chloride 0.9% 1000 ml [Ns] 1,000 ml Med 10/29/24 10:06 Discontinued IV 250 mls/hr Vital Signs Vital signs: Vital Signs Temperature 99.1 F 10/29/24 09:53 Pulse Rate 110 H 10/29/24 09:53 Respiratory Rate 22 H 10/29/24 09:53 Blood Pressure 146/92 H 10/29/24 09:53 Pulse Oximetry (%) 98 10/29/24 09:53 Oxygen Delivery Method Room Air 10/29/24 09:53 O2 saturation 98% room air within normal limits Abdominal Pain MDM MDM Narrative MDM Narrative:: 29-year-old male presents to the emergency department complains of right upper abdominal pain patient reports symptoms over the last couple of days patient reports previous episodes similar in the past. Patient was evaluated yesterday instructed to return today for HIDA scan On exam patient does have pain in the right upper quadrant tenderness on palpation I viewed the patient's lab work and ultrasound yesterday Ultrasound consistent with cholecystitis as a patient liver enzymes were elevated I do not believe patient needs HIDA scan Consultation: I spoke with Dr. Parnell who states she will admit the patient for surgery At time of admission patient no distress Patient data External records reviewed:: [facility] previous records Clinical information provided by:: patient Social determinants that could affect healthcare access:: none Patient has the following chronic illnesses:: None How is presenting disease/condition affected by chronic disease/condition?: no chronic disease Evaluation data The following diagnostics were reviewed and interpreted by me:: lab results and radiology exam(s) Lab and/or radiology exams considered but not ordered:: Labs radiology obtain Interpretation Summary: Reviewed by me Medications / Prescriptions Medications or Prescriptions considered but not ordered:: Given Medication administrations:: Medication Administration History Acetaminophen (Acetaminophen 325 Mg Tablet) 650 mg PO Q6H PRN PRN Reason: PAIN SCALE 1-3 (mild Stop: 11/28/24 12:01 Sodium Chloride (Ns) 1,000 mls @ 125 mls/hr IV .Q8H SARAH Stop: 11/28/24 12:14 Last Admin: 10/29/24 12:17 Dose: 125 mls/hr Documented By: YESSY Piperacillin Sod/Tazobactam (Sod 3.375 gm/ Sodium Chloride) 50 mls @ 100 mls/hr IV Q8HR [facility]; Protocol Stop: 11/05/24 13:12 Ketorolac Tromethamine (Ketorolac Inj 30 Mg/Ml Vial) 15 mg IVP Q6H PRN PRN Reason: PAIN SCALE 4-6 (Moderate Stop: 11/03/24 12:01 Morphine Sulfate (Morphine Sulf Inj 10 Mg/Ml Vial) 4 mg IVP Q4H PRN PRN Reason: PAIN SCALE 7-10 (Severe Last Admin: 10/29/24 15:04 Dose: 4 mg Documented By: MP Discontinued Medications Sodium Chloride (Ns) 1,000 mls @ 250 mls/hr IV .Q4H STA Stop: 10/29/24 14:05 Last Infusion: 10/29/24 12:12 Dose: 250 mls/hr Documented By: Admin: 10/29/24 10:31 Dose: 250 mls/hr Documented By: DONN Piperacillin Sod/Tazobactam (Sod 3.375 gm/ Sodium Chloride) 50 mls @ 100 mls/hr IV X1 ONE Stop: 10/29/24 13:44 Last Admin: 10/29/24 15:05 Dose: 100 mls/hr Documented By: YESSY Morphine Sulfate (Morphine Sulf Inj 10 Mg/Ml Vial) 4 mg IVP X1 ONE Stop: 10/29/24 10:07 Last Admin: 10/29/24 10:32 Dose: 4 mg Documented By: DONN Ondansetron HCl (Ondansetron Inj 2 Mg/Ml Inj 2 Ml) 4 mg IV X1 ONE; Protocol Stop: 10/29/24 10:07 Last Admin: 10/29/24 10:31 Dose: 4 mg Documented By: DONN Given Consultations Consultation(s) initiated? (list below): Yes Consultation #1 (Physician, Specialty, Details): dr parnell Diagnosis Differential diagnosis abdominal pain: abdominal pain, acute appendicitis, pancreatitis and small bowel obstruction Most likely diagnosis given after review of the tests above:: Abdominal pain Admission Indicated Admission indicated?: indicated Admission Request Was there a request for admission?: Yes Admission Attestation Admission request attestation: Discussed case with Dr. Parnell surgeon Disposition Plan Disposition Plan: Admit Discharge Plan Plan Patient Disposition: Admit Acute Care w/in Hospital Disposition Comment: Stable Problem List Clinical Impression: Acute cholecystitis MARLON/AGYLE Supervising Physician CHIP Supervising Physician: Dr. Gutierrez
[2024-10-29] MEDS: SODIUM CHLORIDE 0.9% 1000 ML 1,000 ML 250 ML IV (10:31)
[2024-10-29] MEDS: ONDANSETRON INJ 2 MG/ML INJ 2 ML 4 MG IV (10:31)
[2024-10-29] MEDS: MORPHINE SULF INJ 10 MG/ML VIAL 4 MG IVP ×2 (10:32→15:04)
[2024-10-29] MEDS: SODIUM CHLORIDE 0.9% 1000 ML 1,000 ML 125 ML IV (12:17)
--- NOTE | 2024-10-29 13:10 | PD.SURHP ---
HPI HPI 29M presenting with abdominal pain. Patient reports pain began a few days ago after eating a burger, in the right upper quadrant at times very severe and associated with mild nausea. Patient states he had similar pain a couple years ago. He denies any fever or diarrhea, workup consistent with acute cholecystitis PMH: None PSH: None Meds: Recently prescribed Augmentin and Protonix for concern for peptic ulcer Allergies: NKDA social history: Non-smoker Review of Systems Review of Systems ROS Unobtainable: All systems reviewed & no additional complaints except as documented Meds Home Medications and Allergies Home Medications ?Medication ?Instructions ?Recorded ?Confirmed ?Type Citalopram Hydrobromide * (CELEXA 20 mg PO HS #0 tabs 11/06/05/15/18 History *) aripiprazole 10 mg tablet (Abilify) 10 mg PO HS 05/15/18 05/15/18 History Allergies Allergy/AdvReac Type Severity Reaction Status Date / Time No Known Allergies Allergy Verified 10/26/24 02:22 Exam Vital Signs Temp Pulse Resp BP Pulse Ox O2 Del Method 98.8 F 78 18 143/94 H 97 Room Air 10/29/24 11:57 10/29/24 11:57 10/29/24 11:57 10/29/24 11:57 10/29/24 11:57 10/29/24 11:57 Constitutional Constitutional: no acute distress Routine Respiratory Exam Respiratory: Present no resp distress Routine Abdominal Exam Abdominal: Present soft and tenderness (+Rolle's sign); Absent distended or rebound Results Results: Laboratory Laboratory results: results reviewed Results: Imaging US - abdomen: report reviewed Assessment & Plan Plan 29M presenting with signs and symptoms of acute cholecystitis. I explained benefits/risks of surgery including need for conversion to open, bleeding, infection, herhia, biliary leak and injury to nearby structures requiring further procedures or major surgery which would require transfer to a tertiary center. Pt expressed understanding and agrees to proceed Quality Measures Quality Measures none
[2024-10-29] MEDS: PIPER/TAZO INJ 3.375 GM in SODIUM CHLORIDE 0.9% (Popper) 50 ML IV (15:05)
--- NOTE | 2024-10-29 18:53 | ESOP_ITS ---
Date of Procedure 10/29/24 Pre Op Diagnosis Acute cholecystitis Post Op Diagnosis Same Procedure Laparoscopic cholecystectomy Findings Inflamed and distended gallbladder containing 100 cc of clear fluid Procedure Description After discussion of risks and benefits, patient was brought to the operating room, SCDs were placed and general anesthesia was induced. He had already received preoperative antibiotics and was prepped and draped in the usual sterile fashion. After timeout a supraumbilical incision was made and the skin was elevated while a Veress needle was placed to the incision. Proper positioning was confirmed with a drop test and the abdomen was insufflated to 15 mmHg. At that point the Veress needle was exchanged for a 5 mm camera using a Visiport technique. There were no signs of injury from the point of entry. 3 additional ports were placed under direct vision, one 12 mm at the epigastrium, one 5 mm right subcostal and one 5 mm right anterior axillary line. Patient was placed in reverse Trendelenburg with left side down. The gallbladder was noted to be significantly distended and was first aspirated with return of approximately 100 cc of clear fluid. At that point the fundus was grasped and retracted cephalad and the infundibulum was grasped and retracted laterally. Ultimately the critical view of safety was achieved with blunt dissection and the cystic duct and cystic artery were clipped and transected in the usual fashion. Of note there was a small accessory artery posterior to the cystic artery which was also clipped and transected in the usual fashion. The gallbladder was removed from the gallbladder bed using electrocautery and the specimen was removed in an Endo Catch bag via the epigastric incision which had to be widened to accommodate the specimen. The gallbladder bed was examined and hemostasis was achieved with electrocautery and reinforced with Surgicel powder. The epigastric fascia was closed with a 0 Vicryl suture using a Sal- Robles. The incisions were irrigated and infiltrated with half percent Marcaine for a total of 30 cc. Incisions were closed with 4 Monocryl and reinforced with Dermabond. Patient was extubated and brought to PACU in stable condition Pathology / specimen Other (Gallbladder) Estimated Blood Loss 100 Surgeon Jackie Garcia MD Surgical Staff Operation Date: 10/29/24 15:45 Case Staff Anesthesiologist: Bony Cameron RNtechnology solutions architect: Leti Izaguirre
--- NOTE | 2024-10-29 18:56 | ESDS_ITS ---
Planned Discharge Date 10/29/24 DS: Providers Provider Date of admission: 10/29/24 12:02 Primary care physician: Matty Cobos MD Admitting Provider: Jackie Garcia MD Attending Provider on Admission: Jackie Garcia MD Consults: 10/29/24 10:08 Consult to General Surgery Stat Comment: Consulting Provider: Jackie Garcia Attending Provider on DC: Jackie Garcia MD Discharging Provider: Jackie Garcia MD Diagnosis Discharge Diagnosis (1) Acute cholecystitis: Status: Acute Problem List Completed Was Problem List Reviewed/Reconciled?: Yes Hospital Course Brief History: 29M presenting with abdominal pain. Patient reports pain began a few days ago after eating a burger, in the right upper quadrant at times very severe and associated with mild nausea. Patient states he had similar pain a couple years ago. He denies any fever or diarrhea, workup consistent with acute cholecystitis PMH: None PSH: None Meds: Recently prescribed Augmentin and Protonix for concern for peptic ulcer Allergies: NKDA social history: Non-smoker Exam Vital Signs Temp Pulse Resp BP Pulse Ox O2 Del Method 98.8 F 78 18 143/94 H 97 Room Air 10/29/24 11:57 10/29/24 11:57 10/29/24 11:57 10/29/24 11:57 10/29/24 11:57 10/29/24 11:57 Discharge Plan Plan Patient Disposition: HOME (Self Care) Disposition Comment: Stable Prescriptions/Referrals Prescriptions/Med Rec: New oxycodone-acetaminophen [Percocet] 5-325 mg tablet 1 tab PO Q6H MDD 6 tabs PRN (Reason: pain) Qty: 10 0RF No Action Citalopram Hydrobromide * (CELEXA *) 20 MG tablet 20 mg PO HS Qty: 0 ibuprofen [IBU] 800 mg tablet 800 mg PO TID PRN (Reason: pain) Qty: 30 0RF acetaminophen-codeine 300-15 mg tablet 1 tab PO Q6H PRN (Reason: pain) Qty: 15 0RF aripiprazole [Abilify] 10 mg Tablet 10 mg PO HS Patient Comments: patient does not know dose pantoprazole 40 mg tablet,delayed release (DR/EC) 40 mg PO QDAY Qty: 30 0RF amoxicillin-pot clavulanate 875-125 mg tablet 1 tab PO BID 7 Days Qty: 14 0RF ondansetron 4 mg tablet,disintegrating 4 mg PO Q8H Qty: 10 0RF meloxicam 7.5 mg tablet 7.5 mg PO QDAY Qty: 10 0RF Referrals: Jackie Garcia MD [Physician] - (You will receive a phone call to confirm a follow-up appointment with me in 2 weeks) Matty Cobos MD [Primary Care Provider] - Patient/Caregiver Discharge Instructions Other Discharge Activity Instructions:: Avoid lifting objects greater than 10 pounds for 6 weeks You may resume showering in 2 days, on 10/31 Avoid bathing or swimming for 2 weeks Your stitches have skin glue on them which will fall off on its own and does not need to be replaced Your stitches will not need to be removed During the surgery we fill your abdomen with air in order to see the structures. We try to remove all this air at the end but some may linger and cause pain that is referred to the shoulder and pain with deep breaths. This will improve with time. Being out of bed and walking will help the air to absorb faster If you develop worsening pain, nausea/vomiting, fever or jaundice please seek care in ER Education Materials: After Gallbladder Surgery, Preventing Surgical Site Infections, ED Diet, Low Fat Print Language: Venezuelan Stand Alone Forms: [employer] Award Info., Patient Portal Info Letter Discharge Order Discharge Orders: Discharge (Routine); Ordered 10/29/24 Ordered By: Jackie Garcia Results Results: Laboratory Laboratory results: results reviewed Results: Imaging US - abdomen: report reviewed Procedures Procedure Date 10/29/24 Procedures Laparoscopic cholecystectomy
--- NOTE | 2024-10-29 18:57 | SUR.PHASEI ---
2031 Patient arrived to recovery resting comfortably in [facility], on oxygen 4L via nasal cannula, breathing unlabored, heart rate elevated-anesthesia provider aware, no new orders at this time, the remained of patients vital signs stable, dressing intact to abdomen; dermabond, no bleeding noted, lung sounds clear upon auscultation, bilateral radial pulses when palpated, report received from Dr. Cameron and Kenny BA
--- NOTE | 2024-10-29 19:28 | SUR.PHASEI ---
1927 Patient medicated by anesthesia provider Dr. Cameron, who is at bedside with patient
[2024-10-29] MEDS: hydrALAZINE INJ 20 MG/ML VIAL 5 MG IV (19:39)
[2024-10-29] MEDS: fentaNYL CIT INJ 50 mCg/ML AMP 2ML IV (19:46)
--- NOTE | 2024-10-29 20:43 | SUR.PHASEII ---
2042 Patient meets discharge criteria from recovery, awake and alert, breathing unlabored, vital signs stable, per patient his pain is tolerable, dressing intact; no bleeding noted, patient tolerating fluids well, denies nausea, patient assisted with dressing into his clothing by his , discharge instructions given to patient and patients with teach-back approach used, signed discharge instructions. Patient given all his belongings prior to discharge, transported via wheelchair and left in a private vehicle.
== END 2024-10-29 20:43 | disposition home or self-care (01) ==
LOC: SERX 13:15 → SERHOLD 15:25 → S2EX 10-30 10:21
PROVIDERS: Emergency Provider Emergency Medicine; PCP Family Medicine; Visit Provider Surgery
PROC: 0FT44ZZ Resection of Gallbladder, Percutaneous Endoscopic Approach (ICD-10-PCS; CPT 47562; principal; 2024-10-29 15:30)
DX: K81.0 Acute cholecystitis (principal)
CPT/HCPCS: 47562; 96361; 96374; 99285; A4217; A4649; J0131; J0360; J1100; J2250; J2270; J2371; J2405; J2543; J2704; J2710; J3010; J3490; J7030; J7050; A9270; J1596; J1920

== ENCOUNTER 2024-11-01 15:22 | Emergency (ER) | payer MEDICAID, SELFPAY ==
[2024-11-01 15:35] VITALS: BP 128/86; PULSE 83; RESP 17; TEMP 37.2; O2SAT 96; BMI 32.5
[2024-11-01 15:59] VITALS: PULSE 90; RESP 18; O2SAT 98; BMI 32.5
--- NOTE | 2024-11-01 16:21 | EKG_ITS ---
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
--- NOTE | 2024-11-01 16:23 | EDNOTE_ITS ---
ED Abdominal Pain RME/HPI General Chief Complaint: Abdominal Pain Stated complaint: ABDOMINAL PAIN Time seen by provider: 11/01/24 16:21 Arrival date/time: 11/01/24 15:22 RME / HPI RME / HPI narrative: 29 year old male who is s/p cholecystectomy performed 10/29/[address] Garcia, presents to the ED BIBA for evaluation of abdominal pain today. Patient states he was sitting in his truck drinking soda when he suddenly began to have pain to his right mid to lower abdomen. Described as a rolling and tearing sensation, rated 10/10 in severity. Accompanied by feeling dizzy. Per medics, patient was found laying supine on the floor and in severe distress. Was given 100mcg of Fentanyl with improvement and on arrival reports only 3/10 pain. Patient denies any fevers, chills, sweats, cramping pain, diarrhea, urinary symptoms, or back pain. Denies any history of kidney stones. Related Data Home Medications ?Medication ?Instructions ?Recorded ?Confirmed Citalopram Hydrobromide * (CELEXA 20 mg PO HS #0 tabs 11/06/05/15/18 *) aripiprazole 10 mg tablet (Abilify) 10 mg PO HS 05/15/18 Previous Rx's ?Medication ?Instructions ?Recorded acetaminophen 300 mg-codeine 15 mg 1 tab PO Q6H PRN pa in #15 tabs 02/22/21 tablet ibuprofen 800 mg tablet (IBU) 800 mg PO TID PRN pain # 30 tabs 02/22/21 amoxicillin 875 mg-potassium 1 tab PO BID 7 days #14 t abs 10/26/24 clavulanate 125 mg tablet pantoprazole 40 mg tablet,delayed 40 mg PO QDAY #30 ta bs 10/26/24 release meloxicam 7.5 mg tablet 7.5 mg PO QDAY #10 tabs 10/07 11/27 ondansetron 4 mg disintegrating 4 mg PO Q8H #10 tabs 0 10/28/24 tablet oxycodone-acetaminophen 5 mg-325 1 tab PO Q6H PRN pain #10 tabs 10/30/ mg tablet (Percocet) Allergies Allergy/AdvReac Type Severity Reaction Status Date / Time No Known Allergies Allergy Verified 10/29/24 17:46 Review of Systems Review of Systems Narrative Review of Systems: Constitutional: DENIES; Fevers Eyes: DENIES; Loss of vision Head/Ear/Nose: DENIES; Loss of hearing Throat: DENIES; Dysphagia Cardiovascular: SEE HPI +dizziness. DENIES; Chest pain, dyspnea or syncope Respiratory: DENIES; Shortness of breath Gastrointestinal: SEE HPI +abd pain. DENIES; Rectal bleeding or melena. Genitourinary: DENIES; Dysuria (painful or difficult urination) Musculoskeletal: DENIES; Arthralgia (pain in a joint),; Skin: DENIES; Rash Neurological: DENIES; Loss of function or movement Psychiatric: DENIES; recent major life stressor, emotional problem, illicit drug use or abuse Endocrinology: DENIES; Weight change Hematologic/Lymphatic: DENIES; Abnormal bruising Allergic/Immunologic: DENIES; Urticaria (hives) Past Medical History Past Medical History PSYCHO/SOCIAL: Positive Depression and Anxiety Social History SMOKING STATUS: Never smoker SUBSTANCE USE: marijuana ED Exam Narrative Physical exam: Physical Exam: General: The vital signs were reviewed. The patient is non-toxic, in no apparent distress and appears healthy with a patent airway, no respiratory distress and has no apparent circulatory problems. Head & Scalp: Normocephalic, atraumatic. Face: Appears normal and is without lesions, deformity. Ears: Left external pinna appears normal. Right external pinna appears normal. Eyes: The sclera is anicteric. No obvious photophobia. The Left and Right Orbit/Lid/Conjunctiva appears normal without swelling, discoloration or injection. Nose: The nose is without deformity, discharge or tenderness; Throat: Appears normal. The mucous membranes are pink and moist without exudates, redness or mass seen. The tongue appears normal. Neck: The neck is supple and no apparent mass or adenopathy. Chest: The chest wall is normal in size and symmetry and has no chest wall tenderness or crepitus. The patient displays normal ventilator effort without retractions, accessory muscle use and has adequate air movement bilaterally with no wheezes and no rales. Cardiovascular: Regular rate and rhythm; No murmurs, rubs, or gallops; Gastrointestinal: The abdomen appears normal. Got well-healing scars from his laparoscopic Britney trocar wound sites look great. No obvious hernias or mass. The abdomen is soft and benign, non-distended, with no pain, no guarding and no rebound tenderness. Bowel sounds are present and normal sounding. No CVA tenderness. Genitourinary: Back/Spine: Not tender normal inspection Extremities/Musculoskeletal/lymphatic: The bilateral upper and lower extremities are warm. There is no evidence of arterial insufficiency. There is no evidence of venous insufficiency/edema. The patient spontaneously moves bilateral upper and lower extremities with no pain and no limitation of movement. There is no apparent, injury or trauma. Skin: The skin is warm, dry and intact. No rashes. No petechia. No purpura. No abnormal bruising. The color is appropriate with no cyanosis. Mental status/Psychiatric: Mental status is appropriate for age. The patient has no apparent delusions, visual hallucinations, no apparent audible hallucinations. The patient has no apparent suicidal thoughts/ideation and no apparent homicidal thoughts/ideation. Neurological: The patient is awake, alert, interactive, cordial, cooperative and is oriented to name and situation. The patient follows commands and answers historical question with no impairme nt. There is no visual disturbance apparent. The pupils are equal and reactive bilaterally with normal eye movements and no diplopia The bilateral upper and lower extremities have normal strength, normal range of motion and normal functioning. The gait, station and balance appear to be baseline with no acute change Course Quality Measures none Orders Category Date Time Status EKG (ED ONLY) *Do not use* NOW Care 11/01/24 16:21 Completed NPO NOW Care 11/01/24 16:21 Active Diet NPO (NOW) Diet 11/01/24 16:21 Active EKG (ED Only) Stat Exams 11/01/24 16:21 Draft B-Type Natriuretic Peptide Stat Lab 11/01/24 16:46 Completed CBC Stat Lab 11/01/24 16:46 Completed Comprehensive Metabolic Panel Stat Lab 11/01/24 16:46 Completed Lactate (Lactic Acid) Stat Lab 11/01/24 16:46 Completed Lipase Stat Lab 11/01/24 16:46 Completed Troponin I Stat Lab 11/01/24 16:46 Completed Urinalysis Stat Lab 11/01/24 16:21 Ordered Urinalysis, C/S if Indicated Stat Lab 11/01/24 16:21 Ordered Sodium Chloride 0.9% 1000 ml [Ns] 2,000 ml Med 11/01/24 16:21 Discontinued IV 2,000 mls/hr Vital Signs Vital signs: Vital Signs Temperature 98.9 F 11/01/24 15:35 Pulse Rate 83 11/01/24 15:35 Respiratory Rate 17 11/01/24 15:35 Blood Pressure 128/86 H 11/01/24 15:35 Pulse Oximetry (%) 96 11/01/24 15:35 Oxygen Delivery Method Room Air 11/01/24 15:35 Pulse ox is 96% on room air which is adequate. Abdominal Pain MDM MDM Narrative MDM Narrative:: IMariela, am scribing for and in the presence of Dr. Little. Patient is postop lap Britney 4 days ago who comes in with acute onset of sharp pain that lasted for short time and resolved. He was quite anxious about this. Some in the ambulance bay and his belly was soft and benign at that time. Said no fever cough runny nose. He has been drinking and eating adequately. He says his urine is light in color. Patient was observed for several hours in the emergency department and labs came back with a white count of 8.7 hemoglobin of 12.9 chemistries were unremarkable BUN/creatinine are within normal limits. His transaminases and total bilirubin are normal. His lactic acid was 0.9. BNP troponin were negative. He produced a urine that was light in color but because he was doing so well and he is having no urinary symptoms we decided to cancel the urine. Patient recheck abdomen is soft and benign. His trocar osei are quite normal and healthy appearing. Patient was advised and reassured and told return if his belly pain persists and returns and persists into contact Dr. Bowman in the morning for a follow-up reevaluation. Dr. Bowman was called and is aware and will follow-up this patient accordingly. Patient data External records reviewed:: [facility] previous records (I reviewed operative report on 10/29/2024 ) and EMS form Clinical information provided by:: patient and EMS Social determinants that could affect healthcare access:: none Patient has the following chronic illnesses:: s/p cholecystectomy 10/29/2024 How is presenting disease/condition affected by chronic disease/condition?: exacerbated by Evaluation data The following diagnostics were reviewed and interpreted by me:: lab results and EKG tracing(s) (Sinus rhythm, rate 70, no STEMI ) Lab and/or radiology exams considered but not ordered:: None Interpretation Summary: as noted above Medications / Prescriptions Medications or Prescriptions considered but not ordered:: None Medication administrations:: Medication Administration History Discontinued Medications Sodium Chloride (Ns) 2,000 mls @ 2,000 mls/hr IV .Q1H ONE Stop: 11/01/24 17:20 Last Admin: 11/01/24 16:44 Dose: 2,000 mls/hr Documented By: RD See above Consultations Consultation(s) initiated? (list below): No Diagnosis Differential diagnosis abdominal pain: abdominal pain, calculus of kidney, c onstipation, diverticulitis, gastroenteritis and other (appendicitis ) Most likely diagnosis given after review of the tests above:: Postoperative pain ileus gas stretching of abdominal wounds Admission Indicated Admission indicated?: not indicated Admission Request Was there a request for admission?: No Disposition Plan Disposition Plan: Discharge Discharge Attestation Discharge Attestation: The patient and all family members were given an opportunity to ask questions and understood the discharge instructions. Discharge instructions specifically effects, indications for sooner follow up or return to the emergency department, and the expected course of current diagnosis. Patient condition: Stable Discharge Plan Plan Patient Disposition: HOME (Self Care) Prescriptions/Referrals Prescriptions/Med Rec: No Action Citalopram Hydrobromide * (CELEXA *) 20 MG tablet 20 mg PO HS Qty: 0 ibuprofen [IBU] 800 mg tablet 800 mg PO TID PRN (Reason: pain) Qty: 30 0RF acetaminophen-codeine 300-15 mg tablet 1 tab PO Q6H PRN (Reason: pain) Qty: 15 0RF aripiprazole [Abilify] 10 mg Tablet 10 mg PO HS Patient Comments: patient does not know dose oxycodone-acetaminophen [Percocet] 5-325 mg tablet 1 tab PO Q6H MDD 6 tabs PRN (Reason: pain) Qty: 10 0RF Rx Instructions: Pt had surgery 10/29/24 pantoprazole 40 mg tablet,delayed release (DR/EC) 40 mg PO QDAY Qty: 30 0RF amoxicillin-pot clavulanate 875-125 mg tablet 1 tab PO BID 7 Days Qty: 14 0RF ondansetron 4 mg tablet,disintegrating 4 mg PO Q8H Qty: 10 0RF meloxicam 7.5 mg tablet 7.5 mg PO QDAY Qty: 10 0RF Referrals: Nimo Cortez, [employer] [Primary Care Provider] - In 1 week Problem List Clinical Impression: Acute postoperative abdominal pain Patient/Caregiver Discharge Instructions Education Materials: Abdominal Pain Additional Instructions: As we discussed the intermittent abdominal pain does not appear to be a serious problem. Your labs came back unremarkable. Dr. Bowman was called and will expect your call for a follow-up visit. Return if getting worse in any way. Print Language: Kuwaiti Stand Alone Forms: [employer] Award Info., Patient Portal Info Letter
[2024-11-01] MEDS: SODIUM CHLORIDE 0.9% 1000 ML 2,000 ML 2000 ML IV (16:44)
[2024-11-01 17:01] VITALS: BP 142/84; PULSE 77; RESP 18; TEMP 36.6; O2SAT 99
[2024-11-01 17:01] LABS: Lactate (Lactic Acid) 0.9 mMol/L (0.4-2.0)
[2024-11-01 17:02] LABS: Basophils % (Auto) 0 % (0-2.5); Eosinophils # (Auto) 0.1 Thou/mm3 (0.0-0.5); Eosinophils % (Auto) 1 % (0-10); Hematocrit 37.9 % (41.0-53.0); Hemoglobin 12.9 g/dL (13.5-16.0); Immature Granulocytes % (Auto) 0 % (0-0); Immature Granulocytes Auto 0.03 Thou/mm3 (0.00-0.00); Lymphocytes # (Auto) 1.8 Thou/mm3 (1.0-4.8); Lymphocytes % (Auto) 21 % (10-50); Mean Corpuscular Hemoglobin 28.9 pg (25.0-35.0); Mean Corpuscular Volume 85 fL (80-100); Monocytes # (Auto) 0.6 Thou/mm3 (0.0-0.8); Monocytes % (Auto) 7 % (0-12); Neutrophils # (Auto) 6.1 Thou/mm3 (1.8-7.7); Neutrophils % (Auto) 71 % (37-80); Nucleated Red Blood Cell % 0 /100 WBC (0); Platelet Count 277 Thou/mm3 (140-440); RDW Standard Deviation 38.1 fL (35.1-43.9); Red Blood Count 4.46 Miln/mm3 (4.50-5.90); White Blood Count 8.7 Thou/mm3 (3.8-10.6)
[2024-11-01 17:19] LABS: B-Type Natriuretic Peptide < 20 pg/mL (0-100)
[2024-11-01 17:20] LABS: Alanine Aminotransferase 63 U/L (10-49); Albumin, Serum 4.2 gm/dL (3.5-5.0); Albumin/Globulin Ratio 1.7 (1.2-2.2); Alkaline Phosphatase 67 U/L (46-116); Anion Gap 7 (7-16); Aspartate Amino Transferase 31 U/L (0-34); BUN/Creatinine Ratio 11 Ratio (12-20); Bilirubin,Total 0.4 mg/dL (0.3-1.2); Blood Urea Nitrogen 9 mg/dL (9-23); Calcium 9.1 mg/dL (8.3-10.6); Calcium (Corrected) 9.1 mg/dL (8.5-10.1); Carbon Dioxide 28.3 mMol/L (20.0-31.0); Chloride 105 mMol/L (98-107); Creatinine (Component) 0.8 mg/dL (0.6-1.3); Estimated Creatinine Clearance 166.7 mL/min (>60); Globulin 2.5 gm/dL (2.3-3.5); Glucose 99 mg/dL (74-106); Lipase 31 U/L (12-53); Osmolality,Calculated 278 (275-295); Potassium 3.6 mMol/L (3.4-5.1); Sodium 140 mMol/L (136-145); Total Protein 6.7 gm/dL (5.7-8.2); Troponin I < 0.002 ng/mL (0.0-0.045); eGFR > 60 See Note
== END 2024-11-01 18:59 | disposition home or self-care (01) ==
PROVIDERS: Emergency Provider Emergency Medicine; PCP Nurse Practitioner Family
DX: G89.18 Other acute postprocedural pain (principal); R10.9 Unspecified abdominal pain; R42 Dizziness and giddiness
CPT/HCPCS: 36415; 80053; 81001; 83605; 83690; 83880; 84484; 85025; 93005; 99284; J7030

== ENCOUNTER 2024-11-12 13:06 | Outpatient (AMB) | payer MEDICAID, SELFPAY ==
[2024-11-12 13:20] VITALS: BP 116/77; PULSE 89; RESP 18; TEMP 36.2; O2SAT 96; BMI 34.5
--- NOTE | 2024-11-12 13:20 | PD.GSCLVISIT ---
Vital Signs - [facility] 11/12/24 13:20 Height 1.78 m Height Method Stated Weight 109.401 kg Weight Measurement Method Standing Scale BMI 34.5 BP 116/77 Blood Pressure Source Automatic Cuff Blood Pressure Location Right Upper Arm Position Sitting Respiration 18 Pulse 89 Pulse Source Monitor Temp 97.1 F Temp Source Temporal Artery Scan Pulse Oximetry (%) 96 Oxygen Delivery Method Room Air Med/Allergies Allergies & Medications Allergies No Known Allergies Allergy (Verified 11/12/24 13:20) Medication Reconciliation Citalopram Hydrobromide * (CELEXA *) 20 mg PO HS #0 tabs 11/07/15 [History Confirmed 11/12/24] aripiprazole 10 mg tablet (Abilify) 10 mg PO HS 05/15/18 [History Confirmed 11/12/24] acetaminophen 300 mg-codeine 15 mg tablet 1 tab PO Q6H PRN pain #15 tabs 02/22/21 [Rx Confirmed 11/12/24] ibuprofen 800 mg tablet (IBU) 800 mg PO TID PRN pain #30 tabs 02/22/21 [Rx Confirmed 11/12/24] pantoprazole 40 mg tablet,delayed release 40 mg PO QDAY #30 tabs 10/26/24 [Rx Confirmed 11/12/24] meloxicam 7.5 mg tablet 7.5 mg PO QDAY #10 tabs 10/28/24 [Rx Confirmed 11/12/24] ondansetron 4 mg disintegrating tablet 4 mg PO Q8H #10 tabs 10/28/24 [Rx Confirmed 11/12/24] oxycodone-acetaminophen 5 mg-325 mg tablet (Percocet) 1 tab PO Q6H PRN pain #10 tabs 10/30/24 [Rx Confirmed 11/12/24] MA Intake Visit Data Collection New Patient or Established: Established Patient (seen at [facility] within 3 years) Reason for Visit:: FOLLOW UP Pain Present Currently: No Pain scale:: 0 Pain Scale Used: Jose Cruz/Numerical Ski Patroller Required: No PCP or OBGYN visit in last 3 months: Yes Hx Now: No Do You Feel Safe at Home: Yes Authorities Contacted: N/A Smoking Status Smoking Status: Never smoker Immunization / Flu Flu Vaccine in the Last 12 Months: No Flu Vaccine Exclusion Criteria: No Exclusion Criteria Past Medical History Past Medical History NEUROLOGIC: Negative Seizures CARDIAC: Negative Cardiac Disorders or Congestive Heart Failure RESPIRATORY: Negative Chronic Obstructive Pulmonary Disease (COPD) or Asthma GENITOURINARY: Negative Renal Disease ENDOCRINE: Negative Diabetes Mellitus Type 1 or Diabetes Mellitus Type 2 HEMATOLOGIC: Negative Sickle Cell Disease PSYCHO/SOCIAL: Positive Depression and Anxiety OTHER HISTORY: Negative Blood Transfusions, Blood Transfusion Reaction or Anesthesia Reactions Social History SMOKING STATUS: Smoking status: Never smoker SUBSTANCE USE: Substance use type: marijuana ALCOHOL: Alcohol Intake: Current (rare) Travel Risk Travel Hx Recent Travel: No HPI HPI Narrative 29M who presented with cholecystitis s/p lap maribeth 10/29 here for planned follow up. Pt states he had significant pain at first and went to ER on POD 3 for evaluation, but his pain improved while in the ER and he had no signs of infection. Pt reports pain is now gone, and he denies nausea/vomiting and fever. He did have diarrhea at first but this has also since improved and he is gradually reintroducing foods to his diet ROS Review of Systems Systems Reviewed: All systems reviewed, normal except as documented Objective/Exam General General Appearance: alert, cooperative and well groomed Resp Respiratory exam: Absent respiratory distress Abdominal Abdominal exam: Present soft and incision (c/d/i, no erythema, no fluctuance or tenderness); Absent distention or tenderness Results Pathology of gallbladder: cholelithiasis with hemorrhagic cholecystitis Assessment & Plan Diagnosis / Problem List (1) Acute cholecystitis: Status: Acute Assessment & Plan: 29M s/p lap maribeth 10/29, recovering well Plan: Avoid strenuous activity for 6 weeks postop F/u as needed Office Procedures GNS Level of Care Nursing/Assessment Patient Status: Established Patient Nursing Assessment/Reassesment: Medication Reconciliation, Update PMH in EMR and Vital Signs Coordination of Care: Complex Care and Chronic Disease 1-5, Education Complex Pt/Fam, Consent,records obtained, informed consent, Results/Orders obtained and Staff clarify orders Established Patient Charge Established Patient Point Assignment: 95 Established Patient Point Charge: EP Level 3 (80-115) Patient Portal Questionaires Social History Tobacco History Smoking Status: Never smoker Alcohol History Alcohol Intake: Current (rare) Domestic Abuse History Do You Feel Safe at Home: Yes Review of Systems Report any current symptoms Only answer those that you have currently: Past Medical History Past Medical History Have you ever been diagnosed with any of the following: Neurological Problems Seizures: No Cardiology Problems Congestive Heart Failure: No Respiratory Problems Chronic Obstructive Pulmonary Disease (COPD): No Asthma: No Genital/Urinary Problems Renal Disease: No Endocrine Problems Diabetes Mellitus Type 1: No Diabetes Mellitus Type 2: No Blood Problems Sickle Cell Disease: No Psychologic Problems Depression: Yes Anxiety: Yes Other Problems Blood Transfusions: No Blood Transfusion Reaction: No Anesthesia Reactions: No
== END 2024-11-12 13:38 | disposition home or self-care (01) ==
LOC: HODSRG 13:06
PROVIDERS: PCP Family Medicine; Referring Provider Family Medicine; Supervising Provider Surgery; Visit Provider Surgery
DX: K81.0 Acute cholecystitis (principal)
CPT/HCPCS: 99213; G0463